=== PATIENT | female | born 1990 | race Caucasian/White ===

== ENCOUNTER 2025-07-07 11:18 | Outpatient (CLI) | payer BC ==
[2025-07-07 11:48] LABS: ALT (SGPT) 30 U/L (Less than 34); AST (SGOT) 32 U/L (11-34); Albumin 4.3 g/dL (3.1-4.5); Alkaline Phosphatase 50 U/L (40-110); Bilirubin, Direct 0.2 mg/dL (0.1-0.3); Bilirubin, Total 0.5 mg/dL (0.3-1.2)
== END 2025-07-07 11:19 | disposition home or self-care (01) ==
LOC: MADLAB 11:18
PROVIDERS: ATTEND Internal Medicine Gastroenterology
DX: K75.4 Autoimmune hepatitis (principal); R74.8 Abnormal levels of other serum enzymes
CPT/HCPCS: 36415; 80076